=== PATIENT | male | born 1960 | race Caucasian/White ===

== ENCOUNTER → 2018-03-28 | Outpatient (CLI) | payer BC, OTHER ==
[~2018-03-28] MED LIST: ACET325; NAPR220; ONDA4ODT MM; PARO10; PROC10; RXDIPHSY PO
== END | disposition home or self-care (01) ==
LOC: PLD 14:34 → LAB SHORT 14:34
DX: D22.5 Melanocytic nevi of trunk (principal); D22.71 Melanocytic nevi of right lower limb, including hip
CPT/HCPCS: 88305; 88342

== ENCOUNTER → 2018-12-08 | Outpatient (CLI) | payer OTHER ==
[2018-12-12 15:07] LABS: M-SPIKE, % Not Observed % (Not Observed); PROTEIN,TOTAL,URINE 4.9 mg/dL (Not Estab.)
== END | disposition home or self-care (01) ==
LOC: OLS 07:18 → LAB SHORT 07:18
PROVIDERS: Internal Medicine
DX: Z00.01 Encounter for general adult medical examination with abnormal findings (principal); I10 Essential (primary) hypertension
CPT/HCPCS: 81050; 84166; 86335

== ENCOUNTER 2019-05-29 21:19 | Emergency (ER) | payer OTHER ==
[~2019-05-29] VITALS: Ht 175.3 cm; Wt 92.1 kg
[2019-05-29] MEDS ORDERED: DULO60 PO (21:53)
[2019-05-29] MEDS ORDERED: Amoxicillin875 MG PO (21:54)
[2019-05-29] MEDS ORDERED: Sulfamethoxazo1 EAC4 PO (21:55)
[2019-05-29] MEDS ORDERED: VALS80 PO (21:56)
[2019-05-29] MEDS ORDERED: LEVSOD75 PO (21:56)
[2019-05-29 23:07] LABS: BASOPHILS ABSOLUTE AUTO 0.09 K/mm3 (0.00-0.23); BASOPHILS PERCENT AUTO 1 % (0-2); EOSINOPHILS ABSOLUTE AUTO 0.16 K/mm3 (0.00-0.68); EOSINOPHILS PERCENT AUTO 1 % (0-6); Hematocrit 41.7 % (37.0-53.0); Hemoglobin 14.4 g/dL (13.5-17.5); IMMATURE GRAN PERCENT AUTO 2 % (0-1); LYMPHOCYTES ABSOLUTE AUTO 2.18 K/mm3 (0.84-5.20); LYMPHOCYTES PERCENT AUTO 17 % (21-46); MONOCYTES ABSOLUTE AUTO 1.18 K/mm3 (0.16-1.47); MONOCYTES PERCENT AUTO 9 % (4-13); Mean Corpuscular HGB 31.3 pg (26.0-34.0); Mean Corpuscular HGB Conc 34.5 g/dL (31.5-36.5); Mean Corpuscular Volume 91 fL (80-100); Mean Platelet Volume 10.7 fL (9.1-12.4); NEUTROPHILS ABSOLUTE AUTO 8.97 K/mm3 (1.96-9.15); NEUTROPHILS PERCENT AUTO 70 % (41-73); Platelet Count 252 K/mm3 (150-400); RDW Coefficient Variation 12.9 % (11.7-14.2); RDW Standard Deviation 42.7 fL (35.1-46.3); White Blood Cell Count 12.88 K/mm3 (4.00-11.30)
[2019-05-29 23:19] LABS: Alanine Aminotransfer (ALT/SGP 51 U/L (12-78); Albumin, Blood 3.3 g/dL (3.4-5.0); Albumin/Globulin Ratio 0.8 (0.8-1.8); Alk Phos 58 U/L (50-136); Anion Gap 6 mmol/L (6-16); Aspartate Aminotrans (AST/SGOT 28 U/L (12-37); Bilirubin, Total 0.3 mg/dL (0.1-1.0); Blood Urea Nitrogen 20 mg/dL (8-24); Bun/Creatinine Ratio 19.4 (12.0-20.0); CO2, Blood 24 mmol/L (21-32); Calcium, Blood 8.6 mg/dL (8.5-10.1); Chloride, Blood 106 mmol/L (98-108); Creatinine, Blood 1.03 mg/dL (0.60-1.20); Globulin, Blood 4.2 g/dL (2.2-4.0); Glomerular Filtration Rate >60 (60-); Glucose, Blood 102 mg/dL (70-99); Sodium, Blood 136 mmol/L (136-145); Total Protein, Blood 7.5 g/dL (6.4-8.2)
== END 2019-05-30 00:40 | disposition home or self-care (01) ==
LOC: ER 21:19
PROVIDERS: Emergency Medicine
DX: L03.116 Cellulitis of left lower limb (principal); I10 Essential (primary) hypertension; Z88.8 Allergy status to other drugs, medicaments and biological substances
CPT/HCPCS: 36415; 80053; 83605; 85025; 96365; 99283-25

== ENCOUNTER 2019-05-30 08:21 | Day surgery (SDC) | payer OTHER ==
[~2019-05-30 08:21] MED LIST changes: +Amoxicillin875 MG PO; +DULO60 PO; +LEVSOD75 PO; +Sulfamethoxazo1 EAC4 PO; +VALS80 PO
== END 2019-05-30 16:42 | disposition home or self-care (01) ==
LOC: ATC 08:21
DX: L03.116 Cellulitis of left lower limb (principal); B34.9 Viral infection, unspecified; I10 Essential (primary) hypertension
CPT/HCPCS: 96365

== ENCOUNTER 2019-05-30 22:52 | Emergency (ER) | payer OTHER ==
[~2019-05-30] VITALS: Ht 175.3 cm; Wt 90.7 kg
== END 2019-05-30 23:55 | disposition home or self-care (01) ==
LOC: ER 22:52
DX: L03.116 Cellulitis of left lower limb (principal); I10 Essential (primary) hypertension; Z79.899 Other long term (current) drug therapy
CPT/HCPCS: 96365

== ENCOUNTER 2019-05-31 02:45 | Day surgery (SDC) | payer OTHER ==
[2019-06-01] MEDS ORDERED: Cleocin HCl300 MG PO (00:07)
== END 2019-05-31 16:43 | disposition home or self-care (01) ==
LOC: ATC 02:45
DX: L03.116 Cellulitis of left lower limb (principal); B34.9 Viral infection, unspecified; I10 Essential (primary) hypertension
CPT/HCPCS: 96365

== ENCOUNTER 2019-05-31 22:41 | Emergency (ER) | payer OTHER ==
[~2019-05-31] VITALS: Ht 175.3 cm; Wt 90.7 kg
[2019-06-01] MEDS ORDERED: Cleocin HCl300 MG PO (00:07)
== END 2019-06-01 00:20 | disposition home or self-care (01) ==
LOC: ER 22:41
DX: L03.116 Cellulitis of left lower limb (principal); Z88.8 Allergy status to other drugs, medicaments and biological substances
CPT/HCPCS: 96365

== ENCOUNTER 2019-06-01 00:23 | Day surgery (SDC) | payer OTHER ==
[~2019-06-01 00:23] MED LIST changes: +Cleocin HCl300 MG PO
== END 2019-06-01 16:51 | disposition home or self-care (01) ==
LOC: ATC 00:23
DX: L03.116 Cellulitis of left lower limb (principal); B34.9 Viral infection, unspecified; I10 Essential (primary) hypertension
CPT/HCPCS: 96365

== ENCOUNTER 2022-02-03 11:51 | Day surgery (SDC) | payer OTHER ==
[~2022-02-03] VITALS: Ht 177.8 cm; Wt 84.9 kg
[2022-02-03] MEDS ORDERED: OMEP20ER (12:18)
[2022-02-03] MEDS ORDERED: OMEGA-3 + VITA200 ML (12:19)
== END 2022-02-03 13:44 | disposition home or self-care (01) ==
LOC: ORSCSDS 11:51
PROVIDERS: Surgery
PROC: 0DJD8ZZ Inspection of Lower Intestinal Tract, Via Natural or Artificial Opening Endoscopic (ICD-10-PCS; principal; 2022-02-03 13:00)
DX: Z12.11 Encounter for screening for malignant neoplasm of colon (principal); I10 Essential (primary) hypertension; Z85.118 Personal history of other malignant neoplasm of bronchus and lung; Z87.891 Personal history of nicotine dependence; Z79.899 Other long term (current) drug therapy
CPT/HCPCS: J2704; J7120